=== PATIENT | female | born 1985 | race Caucasian/White ===

== ENCOUNTER 2018-05-23 20:44 | Emergency (ER) | payer SELFPAY ==
[~2018-05-23] VITALS: Ht 162.6 cm; Wt 68.0 kg
[2018-05-23] MEDS ORDERED: CEPH-264 PO (21:05)
--- NOTE | 2018-05-23 21:06 | PHYS DOC ---
Adult General Chief Complaint Chief Complaint: LACERATION/AVULSION HPI HPI 32-year-old female presents to ER with complaints of accidental laceration to left palm. Patient reports she was cutting wires when the knife she was using slipped causing the laceration to her left hand. Patient reports she is up-to- date on her tetanus within the past 5 years. Patient reports she is right hand dominant. She denies large amt of blood loss. She denies numbness/tingling. Review of Systems Review of Systems Constitutional: Denies fatigue/lethargy Cardiovascular: No additional information not addressed in HPI [] GI: Denies nausea/vomiting Musculoskeletal: Denies joint pain [] Integument: Reports laceration lt palm Neurologic: Denies focal weakness or sensory changes. Denies dizziness/ lightheadedness All other systems were reviewed and found to be within normal limits, except as documented in this note. Current Medications Current Medications Current Medications Medications (Trade) Dose Ordered Sig/Apolinar Start Time Stop Time Status Last Admin Dose Admin Ibuprofen (Motrin) 600 mg 1X ONCE 05/23/18 21:30 05/23/18 21:31 DC 05/23/18 21:30 600 MG Lidocaine HCl (Xylocaine-Mpf 1% 2ml Vial) 2 ml STK-MED ONCE 05/23/18 21:18 05/23/18 21:19 DC Lidocaine/ Epinephrine (LIDOCAINE 1%-EPI 1:100,000 Multi-Dose) 20 ml STK-MED ONCE 05/23/18 21:14 05/23/18 21:15 DC Lidocaine/Sodium Bicarbonate (Buffered Lidocaine 1%) 3 ml STK-MED ONCE 05/23/18 21:16 05/23/18 21:17 DC Neomycin/ Polymyxin/ Bacitracin (Triple Antibiotic Ointment) 1 pkt STK-MED ONCE 05/23/18 21:50 05/23/18 21:51 DC Allergies Allergies Allergies Coded Allergies Type Severity Reaction Last Updated Verified No Known Drug Allergies 05/23/18 No Physical Exam Physical Exam Constitutional: Well developed, well nourished, no acute distress, non-toxic appearance. [] HENT: Normocephalic, atraumatic, bilateral ears normal, oropharynx moist Eyes: PERRLA, conjunctiva normal, no discharge. [] Neck: Normal range of motion, no tenderness, supple Cardiovascular:Heart rate regular rhythm, no murmur [] Lungs & Thorax: Bilateral breath sounds clear to auscultation Abdomen: Bowel sounds normal, soft, no tenderness, no masses, no pulsatile masses. [] Skin: Warm, dry, laceration lt palm distal to lt wrist- no active bleeding during initial exam- no ecchymosis/swelling- tender to palp. at lac site. No other injury found on exam Extremities: no cyanosis, no clubbing, ROM intact, no edema. [] Neurologic: Alert and oriented X 3, normal motor function, normal sensory function, no focal deficits noted. [] Psychologic: Affect normal, judgement normal, mood normal. [] Current Patient Data Vital Signs Vital Signs Date Time Temp Pulse Resp B/P (MAP) Pulse Ox O2 Delivery O2 Flow Rate FiO2 05/23/18 21:39 98.6 92 16 144/82 (102) 99 Room Air 98.6 EKG EKG [] Radiology/Procedures Radiology/Procedures Laceration Repair by me: Verbal consent obtained from pt following discussion prior to regarding procedure plan Anesthesia: 5 mL 1% lidocaine locally Location: palm surface lt hand- proximal to wrist Tendon/Joint/Nerves: No injury- flexor tendon intact against resistance lt fingers prior to/following lac repair- full extension of all lt fingers/thumb Foreign body: None detected after copious irrigation and exploration Technique: Simple Interrupted Sutures Complexity: No subcutaneous sutures/mucosal repair/edge excision Post Closure Length: 6.5 cm #8 4.0 nylon Patient's bleeding was easily controlled in the department and there is no indication of anemia. No evidence of compartment syndrome, neurologic injury, vascular injury, open joint, tendon laceration, or foreign body. Patient is appropriate for outpatient follow up. 48 hour wound check. Scar minimization instructions given. Course & Med Decision Making Course & Med Decision Making Pt remained neuro and vascular intact prior to and following laceration repair lt hand. Pt tolerated lac repair well with minimal blood loss. 8 sutures were placed and education was provided on home wound care and s&s to return to ER for or have re-evaluation of wound for. Discharge instructions discussed. At time of discharge pt had no active bleeding with brisk cap. refill all lt fingers/thumb. Full ROM of lt hand/wrist. Will have drsg applied prior to discharge. Will place pt on preventative Keflex x5 days as pt was using knife cutting wires. Dragon Disclaimer Dragon Disclaimer This electronic medical record was generated, in whole or in part, using a voice recognition dictation system. Departure Departure Impression: Primary Impression: Laceration of hand without complication, excluding fingers Disposition: 01 HOME, SELF-CARE Condition: STABLE Referrals: NO PCP (PCP) Patient Instructions: Suture Removal-Brief Additional Instructions: Follow-up with primary doctor in 7 days for suture removal. Tylenol and/or Ibuprofen as needed for pain control as directed on container. Keep wound clean and dry for 24 hours and then shower regular blot drying the wound. Scripts Cephalexin (KEFLEX) 500 Mg Capsule 1 CAP PO BID, #10 CAP Prov: ANAMARIA MAIER APRN 05/23/18 Attending Signature Attending Signature I have reviewed the PA/DIRECTOR OF MECHANICAL ENGINEERING's note and plan of care. I was available for consultation as needed during the patient's visit in the emergency department. I agree with the clinical impression, plan, and disposition. ANAMARIA MAIER APRN May 23, 2018 21:06 SHRUTHI ZIMMER DO May 25, 2018 03:22
[2018-05-23] MEDS ORDERED: LIDOCAINE 1%/EPI 1:100,000 20 ML VIAL. ONE (21:14)
[2018-05-23] MEDS ORDERED: LIDOCAINE WITH 8.4% SOD BICARB 3 ML DISP.SYRIN. ONE (21:16)
[2018-05-23] MEDS ORDERED: LIDOCAINE 1% PF 2 ML VIAL. ONE (21:18)
[2018-05-23] MEDS ORDERED: IBUPROFEN 600 MG TABLET. PO ONE (21:30)
[2018-05-23 21:39] VITALS: BP 144/82
[2018-05-23] MEDS ORDERED: NEOMY/BACITR/POLYMYXIN OINT PACKET. TP ONE (21:50)
[2018-05-23] MEDS ORDERED: LIDOCAINE 1%/EPI 1:100,000 20 ML VIAL. INJ ONE (22:00)
== END 2018-05-23 22:05 | disposition home or self-care (01) ==
LOC: ER 20:44
DX: S61.512A Laceration without foreign body of left wrist, initial encounter (principal); W26.0XXA Contact with knife, initial encounter; Y93.89 Activity, other specified; Y92.89 Other specified places as the place of occurrence of the external cause; Y99.8 Other external cause status
CPT/HCPCS: 12002; 99283; J3490